=== PATIENT | male | born 1950 | race Caucasian/White ===

== ENCOUNTER 2023-10-06 15:11 | Outpatient (RCR) | payer MEDICARE, OTHER, SELFPAY | END 2023-10-06 23:59 | disposition home or self-care (01) | LOC: CRHB 15:11 | PROVIDERS: ATTENDING PHYSICIAN Internal Medicine | DX: I50.22 Chronic systolic (congestive) heart failure (principal); E85.4 Organ-limited amyloidosis; I43 Cardiomyopathy in diseases classified elsewhere | CPT/HCPCS: G0422; G0423 ==

== ENCOUNTER 2023-11-03 15:25 | Outpatient (RCR) | payer MEDICARE, OTHER, SELFPAY | END 2023-11-03 23:59 | disposition home or self-care (01) | LOC: CRHB 15:25 | PROVIDERS: ATTENDING PHYSICIAN Internal Medicine | DX: I50.22 Chronic systolic (congestive) heart failure (principal) | CPT/HCPCS: G0422; G0423 ==

== ENCOUNTER 2023-12-03 14:52 | Outpatient (RCR) | payer MEDICARE, OTHER, SELFPAY | END 2023-12-03 23:59 | disposition home or self-care (01) | LOC: CRHB 14:52 | PROVIDERS: ATTENDING PHYSICIAN Internal Medicine | DX: I50.22 Chronic systolic (congestive) heart failure (principal); I50.20 Unspecified systolic (congestive) heart failure (principal) | CPT/HCPCS: G0422; G0423 ==

== ENCOUNTER 2023-12-15 15:30 | Outpatient (RCR) | payer MEDICARE, OTHER, SELFPAY ==
[2023-12-14 09:01] LABS: HDL Cholesterol 47 mg/dl; LDL Cholesterol, Calculated 87 mg/dl; Total Cholesterol 155 mg/dl (50-199); Triglyceride 106 mg/dl (10-149); Very Low Density Lipoprotein 21 mg/dl (0-30)
== END 2023-12-15 23:59 | disposition home or self-care (01) ==
LOC: CRHB 15:30
PROVIDERS: ATTENDING PHYSICIAN Internal Medicine; FAMILY PHYSICIAN Physician Assistant
DX: I50.22 Chronic systolic (congestive) heart failure (principal); I42.8 Other cardiomyopathies; I48.19 Other persistent atrial fibrillation; Z95.810 Presence of automatic (implantable) cardiac defibrillator
CPT/HCPCS: 36415; 80061; G0422; G0423

== ENCOUNTER → 2024-11-14 10:52 | Outpatient (REF) | payer MEDICARE, OTHER, SELFPAY | LOC: RAD 10:52 | PROVIDERS: ATTENDING PHYSICIAN Physician Assistant | DX: R13.19 Other dysphagia (principal); R63.4 Abnormal weight loss | CPT/HCPCS: 74246 ==

== ENCOUNTER → 2024-11-20 09:51 | Outpatient (REF) | payer MEDICARE, OTHER, SELFPAY | LOC: RST 09:51 | PROVIDERS: ATTENDING PHYSICIAN Physician Assistant | DX: R13.19 Other dysphagia (principal) | CPT/HCPCS: 74230; 92611 ==

== ENCOUNTER → 2024-12-13 13:21 | Outpatient (REF) | payer MEDICARE, OTHER, SELFPAY | LOC: RAD 13:21 | PROVIDERS: ATTENDING PHYSICIAN Internal Medicine; FAMILY PHYSICIAN Physician Assistant; OTHER PHYSICIAN Internal Medicine Cardiovascular Disease; OTHER PHYSICIAN Internal Medicine Hematology & Oncology | DX: E85.82 Wild-type transthyretin-related (ATTR) amyloidosis (principal); R13.19 Other dysphagia; R63.4 Abnormal weight loss; D64.9 Anemia, unspecified; N18.4 Chronic kidney disease, stage 4 (severe) | CPT/HCPCS: 36415; 71270; 74178; Q9967 ==

== ENCOUNTER 2025-03-05 15:18 | Outpatient (RCR) | payer MEDICARE, OTHER, SELFPAY | END 2025-03-05 23:59 | disposition home or self-care (01) | LOC: RPT 15:18 | PROVIDERS: ATTENDING PHYSICIAN Psychiatry & Neurology Neurology; FAMILY PHYSICIAN Physician Assistant | DX: G20.A1 Parkinson's disease without dyskinesia, without mention of fluctuations (principal); Z73.6 Limitation of activities due to disability | CPT/HCPCS: 97110; 97112; 97163; 97164; 97530 ==

== ENCOUNTER 2025-03-14 15:20 | Outpatient (RCR) | payer MEDICARE, OTHER, SELFPAY | END 2025-03-14 23:59 | disposition home or self-care (01) | LOC: ROT 15:20 | PROVIDERS: ATTENDING PHYSICIAN Psychiatry & Neurology Neurology; FAMILY PHYSICIAN Physician Assistant | DX: G20.A1 Parkinson's disease without dyskinesia, without mention of fluctuations (principal); Z73.6 Limitation of activities due to disability | CPT/HCPCS: 97110; 97112; 97530 ==

== ENCOUNTER 2025-03-15 15:12 | Emergency (ER) | payer MEDICARE, OTHER, SELFPAY ==
[2025-03-15] VITALS (8 sets, daily range): BP systolic 95–115; BP diastolic 59–75; BMI 24.0
--- NOTE | 2025-03-15 16:52 | ED.GENMED ---
History of Present Illness
General
Chief Complaint: Weakness
Time Seen by Provider: 03/15/25 16:19
History of Present Illness
History of Present Illness:
74-year-old male with history of A-fib, amyloidosis, and Parkinson's-like syndrome presents to the emergency department for evaluation of increasing functional decline and altered mental status in the past 5 days. She notes a left facial droop and
occasional difficulty with speech. Increased shuffling gait and instability. Last saw his neurologist last week. No fevers or chills
Past History
Past History
ED Past Medical History: Arrthythmia (Atrial fibrillation), CHF, HTN and Other (Amyloidosis cardiomyopathy)
ED Past Surgical History: Cardiac
Social History
Tobacco: Non-smoker
Alcohol: None
Review of Systems
Review of Systems
Allergies reviewed?: Yes
All Other Systems: ROS reviewed and negative except as documented in HPI and ROS
Phy Exam
Physical Exam
Physical Exam:
GEN: Well appearing, NAD, WDWN
HEENT: Oral mucosa moist, no scleral icterus
Cardiac: Regular rate and rhythm, no murmurs
Lung: No respiratory distress, no tachypnea, lungs clear to auscultation bilaterally
MSK: No gross deformity or injuries
Skin: Good color, no pallor or jaundice, no rashes
Neuro: AO x3, moves all extremities freely. Mild facial droop at the left nasolabial fold appreciated, otherwise cranial nerves II through XII grossly intact. Bilateral upper and lower extremity strength is intact in all flores and symmetric
Psych: Calm, cooperative
Course
Orders/Labs/Results
Orders:
Orders
03/15/25 16:51
CT Head W/o Iv Contrast Urgent
Comment:
Reason For Exam: AMS, L facial droop
03/15/25 16:54
Electrocardiogram (*1) Urgent
Reason for Study: TIA/Stroke
EKG- Treatment ONCE
03/15/25 17:20
Basic Metabolic Panel Urgent
Complete Blood Count/With Diff Urgent
03/15/25 17:27
Urinalysis Reflex To Culture Urgent
Date Specimen was Collected: 03/15/25
Time Specimen was Collected: 17:26
03/15/25 19:30
Dexamethasone Sod Phosphate [Decadron] 10 mg IV NOW STA
Abnormal Lab Results
03/15/25 03/15/25
17:20 17:27
RBC 3.30 L 10^6/uL
(4.70-6.10)
Hgb 10.2 L g/dL
(13.0-18.0)
Hct 29.2 L %
(39.0-52.0)
Plt Count 119 L 10^3/uL
(130-400)
Absolute Lymphs (auto) 1.1 L 10^3/uL
(1.2-3.4)
Lymphocytes % 19.4 L %
(20.5-51.1)
BUN 39 H mg/dl
(9-20)
Creatinine 1.6 H mg/dL
(0.7-1.3)
Glucose 102 H mg/dl
(70-99)
Urine Glucose 4+ A
(Negative)
03/15/25 17:20
03/15/25 17:20
Vital Signs
Initial and Last Documented VS:
Initial Vital Signs
Temp Pulse Resp BP Pulse Ox
97.6 F 85 16 95/59 99
03/15/25 15:16 03/15/25 15:16 03/15/25 15:16 03/15/25 15:16 03/15/25 15:16
Last Documented Vital Signs
Temp Pulse Resp BP Pulse Ox
97.6 F 85 11 102/69 98
03/15/25 15:16 03/15/25 22:00 03/15/25 22:00 03/15/25 22:00 03/15/25 21:30
MDM/Problems Addressed
MDM/Problems Addressed:
Unfortunately imaging reveals a large 5+ centimeter mass in the right hemisphere of the brain with significant mass effect. Strangely he had a normal CT scan at [facility] 1 month ago which does question whether this could be a hematoma as
the patient is anticoagulated however given lack of trauma and this is most likely MS. Transferred to the surgical service at [facility] remained stable with no change in neurologic status
*Pulse Oximetry
SaO2: 100
Oxygen Mode of Delivery: Room air
Patient hypoxic: no
*Critical Care Note
Total Time (30-74mins, 75-104mins- exclusive of procedures): 35 minutes
comment:
Critical care time: 35 minutes
Critical care time was exclusive of: Separately billable procedures, treating other patients, and teaching time
Critical care was necessary to treat or prevent imminent or life-threatening deterioration of the following conditions: Brain mass with significant mass effect
Critical care time spent personally by me on the following activities:
[x] Review of old charts
[x] Obtaining history from patient or surrogate
[x] Ordering and review of the laboratory studies
[x] Ordering and review of radiographic studies
[x] Ordering and performing treatments and interventions
[x] Patient patient's response to treatment
[x] Development of treatment plan with patient or surrogate
ED Attending Note
-
Portions of this chart may have been created with voice recognition software.� Occasional wrong word or��sound alike� substitutions may have occurred due to the inherent limitations of voice recognition software.
Discharge Plan
Departure
Patient Disposition: Acute Care Hospital
Date of Disposition: 03/15/25
Time of Disposition: 19:24
Discharge Problem:
Brain mass
Prescriptions:
No Action
Amyloidosis Clinical Trial
1 dose SC [id number]
atorvastatin 40 mg tablet
40 mg PO HS
Vyndamax 61 mg capsule
61 mg PO DAILY
Eliquis 5 mg Tablet
5 mg PO BID Qty: 60 0RF
Rx Instructions:
New medication which is a blood thinner
sennosides-docusate sodium [Senna Plus] 8.6-50 mg Tablet
1 tab PO BID Qty: 30 0RF
polyethylene glycol 3350 17 gram Powder In Packet
17 g PO DAILY PRN (Reason: constipation) Qty: 30 0RF
midodrine 10 mg tablet
10 mg PO TID 30 Days Qty: 90 0RF
torsemide 20 mg tablet
40 mg PO DAILYPRN PRN (Reason: wt gain) Qty: 0 0RF
Rx Instructions:
for weight gain 3 lbs overnight or 5lbs in 1 wk
amiodarone [Pacerone] 200 mg Tablet
200 mg PO BID 30 Days Qty: 60 0RF
multivitamin Tablet
1 tab PO DAILY
potassium chloride [Klor-Con M20] 20 mEq tablet,ER particles/crystals
20 meq PO QPM
Rx Instructions:
New medication
Referrals:
Sophie Lynn PA [Family Provider, Family Practice]
Hospital Transfer
Other hospital: [facility]
I certify that the patient requires transfer: Yes
Discussed case with accepting physician: Michela
Reason for transfer: higher level of care
Interventions
Interventions:
*Risk Screen - Suicide Last Done: 03/15/25 15:16
*General Assessment Last Done: 03/15/25 15:16
*ED- Fall Risk Assessment Last Done: 03/15/25 16:37
*ED COVID-19 Vaccine History Last Done: 03/15/25 15:16
*Nursing Disposition Last Done: 03/15/25 22:52
ED- Pulmonary Assessment Last Done: 03/15/25 19:55
ED- Neurological Assessment Last Done: 03/15/25 19:55
ED- Cardiac Assessment Last Done: 03/15/25 19:55
Discharge Date and Time
Discharge Date/Time: 03/15/25 22:53
Print Language: BELGIAN
[2025-03-15 17:29] LABS: Hematocrit 29.2 % (39.0-52.0); Hemoglobin 10.2 g/dL (13.0-18.0); Mean Corp Hgb Conc. 34.9 g/dL (33.0-37.0); Mean Corpuscular Volume 88.5 fL (80.0-94.0); Nucleated Red Blood Cells % 0 % (-); Platelet Count 119 10^3/uL (130-400); Red Cell Dist. Width 13.2 % (11.5-14.5)
[2025-03-15 17:42] LABS: Urine Character Clear (Clear)
[2025-03-15 17:45] LABS: Blood Urea Nitrogen 39 mg/dl (9-20); Calcium 8.8 mg/dl (8.4-10.2); Carbon Dioxide 26 mmol/L (22-30); Chloride 103 mmol/L (98-107); Estimated Creatinine Clearance 44 ml/min; Glucose 102 mg/dl (70-99); Sodium 137 mmol/L (135-145); eGFR 45.21
[2025-03-15] MEDS: DECADRON 10 MG IV (19:33)
== END 2025-03-15 22:53 | disposition short-term general hospital (02) ==
LOC: EMR 15:12
PROVIDERS: Physician Assistant; EMERGENCY PHYSICIAN Emergency Medicine; FAMILY PHYSICIAN Physician Assistant
DX: G93.9 Disorder of brain, unspecified (principal); I48.91 Unspecified atrial fibrillation; G20.A1 Parkinson's disease without dyskinesia, without mention of fluctuations; I11.0 Hypertensive heart disease with heart failure; I50.9 Heart failure, unspecified; I42.9 Cardiomyopathy, unspecified
CPT/HCPCS: 99291; 96374; 70450; 80048; 81003; 85025; 93005

== ENCOUNTER → 2025-04-23 12:19 | Outpatient (REF) | payer MEDICARE, OTHER, SELFPAY ==
[2025-04-23 12:53] LABS: Hematocrit 28.3 % (39.0-52.0); Hemoglobin 9.3 g/dL (13.0-18.0); Mean Corp Hgb Conc. 32.9 g/dL (33.0-37.0); Mean Corpuscular Volume 93.4 fL (80.0-94.0); Nucleated Red Blood Cells % 0 % (-); Platelet Count 189 10^3/uL (130-400); Red Cell Dist. Width 16.0 % (11.5-14.5)
[2025-04-23 13:16] LABS: ALT (SGPT) 17 U/L (0-50); AST (SGOT) 104 U/L (17-59); Albumin 4.3 g/dl (3.5-5.0); Alkaline Phosphatase 126 U/L (38-126); Blood Urea Nitrogen 37 mg/dl (9-20); Calcium 9.5 mg/dl (8.4-10.2); Carbon Dioxide 26 mmol/L (22-30); Chloride 100 mmol/L (98-107); Glucose 162 mg/dl (70-99); Potassium 4.0 mmol/L (3.5-5.1); Sodium 136 mmol/L (135-145); Total Protein 7.3 g/dl (6.3-8.2); eGFR > 60.00
== END ==
LOC: CLAB 12:19
PROVIDERS: ATTENDING PHYSICIAN Physician Assistant
DX: N18.4 Chronic kidney disease, stage 4 (severe) (principal); D64.9 Anemia, unspecified
CPT/HCPCS: 36415; 80053; 85025

== ENCOUNTER 2025-05-15 12:32 | Observation (INO) | payer MEDICARE, OTHER, SELFPAY ==
[2025-05-15] VITALS (9 sets, daily range): BP systolic 99–122; BP diastolic 61–73; BMI 21.0
[2025-05-15] MEDS: KEPPRA 1500 MG IV (06:14)
[2025-05-15 06:23] LABS: Hematocrit 34.6 % (39.0-52.0); Hemoglobin 11.7 g/dL (13.0-18.0); Mean Corp Hgb Conc. 33.8 g/dL (33.0-37.0); Mean Corpuscular Volume 91.3 fL (80.0-94.0); Nucleated Red Blood Cells % 0 % (-); Platelet Count 120 10^3/uL (130-400); Red Cell Dist. Width 15.1 % (11.5-14.5)
--- NOTE | 2025-05-15 06:23 | ED.GENMED ---
History of Present Illness
General
Chief Complaint: Seizure
Source: patient, spouse, family and ambulance crew
Exam Limitations: none
Time Seen by Provider: 05/15/25 06:05
Nursing documentation reviewed up to this point in time: agreed with
History of Present Illness
History of Present Illness:
Note:
CHIEF COMPLAINT(S)
Seizures
HISTORY OF PRESENT ILLNESS
The patient is a 74-year-old male with a recent history of seizures. The seizures began this morning, with at least three episodes noted by the family. The first significant episode was reported around 5:00 or 5:30 AM. During the seizures, the
patient exhibited stiffening in the legs and some rolling of the eyes. Prior to today, there was mention of a possible seizure occurring earlier which the family did not fully witness, as well as a tremor noted in the hands earlier in the night that
had resolved. The patients daughter is concerned and mentioned that the patient had undergone radiation treatment in the past. There is uncertainty about whether the seizures are breakthrough seizures, possibly associated with inflammation due to
prior radiation treatment.
ADDITIONAL HISTORY OBTAINED FROM SOURCES OTHER THAN THE PATIENT
Information was provided by the patients daughter. She reported details regarding the seizures, including timing, symptoms, and the patients history of radiation treatment. There was also mention of a neurologist, Qian Aguilera, being involved in
the patients care.
CHRONIC MEDICAL CONDITIONS SIGNIFICANTLY AFFECTING CARE
The patient has undergone radiation treatment in the past.
PHYSICAL EXAM
General: drowsy, postictal
Skin: Warm, dry.
Head: Normocephalic, atraumatic.
Neck: Supple, trachea midline.
Eye, Ears, Nose, Mouth, and Throat: Oral mucosa moist.
Cardiovascular: Normal peripheral perfusion, No edema. pacemaker
Respiratory: Respirations are non-labored.
Gastrointestinal: Abdomen nondistended.
Back: Normal range of motion, Normal alignment.
Musculoskeletal: Normal range of motion, normal strength.
Neurological: Alert and oriented to person, place, time, and situation, No focal neurological deficit observed.
Psychiatric: Cooperative, appropriate mood & affect.
PROBLEM LIST
Acute Problems:
- Seizures
Chronic Problems:
- History of radiation treatment
DIFFERENTIAL DIAGNOSIS
The Differential Diagnosis includes, in no particular order and is not limited to:
1. Epilepsy
2. Post-radiation effects
3. Medication non-compliance
4. Brain tumor recurrence
5. Metabolic disturbances
6. Infections (e.g., meningitis, encephalitis)
7. Cerebrovascular event
8. Electrolyte imbalances
9. Sleep disturbances
10. Anxiety or stress-related episodes
CARE-UPDATE
05/15/25 - 06:57
No Content
CARE-UPDATE
05/15/25 - 10:53
Patient shows no signs of subdural hematoma and has returned to baseline with no neurologic deficits observed. Coordination with Dr. Banuelos from [facility] confirms recommendation for admission to [place]. Plan includes loading
with VIMPAT and seeking a consultation with radiation oncology.
EKG
My independent EKG interpretation is:
- Rhythm: Sinus rhythm
- Heart Rate: 84 bpm
- [place]: Left axis deviation
Disposition:
SUMMARY OF ENCOUNTER
The patient, a 74-year-old male, was evaluated in the emergency department following episodes of seizures, as reported by family. Upon further imaging, a CT scan revealed findings consistent with post-operative changes, possibly related to previous
treatment for a glioblastoma. His condition prompted admission to Intermediate Medical Unit (IMU) for closer observation and management.
DISPOSITION
Admit to Intermediate Medical Unit (IMU).
MANAGEMENT OF THE PATIENTS CARE WAS DISCUSSED WITH
Consultation and coordination with the hospital team for admission.
MEDICATION RECONCILIATION
- IV Lacosamide (Vimpat) administered during emergency care.
MEDICAL DECISION MAKING
-Number and Complexity of Problems Addressed:
Chronic conditions affecting care include a history of radiation treatment.
Differential Diagnosis includes:
1. Epilepsy
2. Post-radiation effects
3. Medication non-compliance
4. Brain tumor recurrence
5. Metabolic disturbances
6. Infections (e.g., meningitis, encephalitis)
7. Cerebrovascular event
8. Electrolyte imbalances
9. Sleep disturbances
10. Anxiety or stress-related episodes
-Data:
Category 1
External record reviewed: CT head findings discussed, consistent with post-operative changes.
Category 2
Clinical information was obtained from an independent historian, provided by the patients daughter.
Category 3
Discussion of management with the hospital team for appropriate care and admission.
-Risk:
Prescription medication was administered with IV Lacosamide (Vimpat) in emergent care.
DIAGNOSIS
- Seizures (ICD-10: R56.9)
- Glioblastoma (ICD-10: C71.9)
Past History
Past History
ED Past Medical History: Arrthythmia (Atrial fibrillation), CHF, HTN and Other (Amyloidosis cardiomyopathy)
ED Past Surgical History: Cardiac
Social History
Tobacco: Non-smoker
Alcohol: None
Phy Exam
Physical Exam
Physical Exam:
.
Jocelin Coma Scale
Eye Opening: To Voice
Verbal Response: Confused
Motor Response: Obeys Commands
GCS Total Score: 13
Course
Orders/Labs/Results
Orders:
Orders
05/15/25 05:54
CT Head W/o Iv Contrast Urgent
Comment:
Reason For Exam: multple seizures tonight. hx brain mass
05/15/25 05:56
Complete Blood Count/With Diff Urgent
Comprehensive Metabolic Panel Urgent
Keppra (Levetiracetam) [S] Urgent
05/15/25 06:04
Levetiracetam Injectable [Keppra] 1,500 mg IV NOW STA
05/15/25 07:27
CR Chest Portable - 1 View Urgent
Comment:
Reason For Exam: seizure
Reason Study Needs to be Portable: Unable to Transport
05/15/25 07:46
Electrocardiogram (*1) Stat
Reason for Study: QTc Monitoring
Electrocardiogram (*1) Urgent
EKG- Treatment ONCE
05/15/25 08:17
Lacosamide [Vimpat] 200 mg IV NOW STA
05/15/25 09:58
Admit/Transfer Patient As Directed
Co-Sign Provider:
Level of Care: Inpatient admission
Assign to:: Medical/Surgical
Physician / Group: hospitalist
Diagnosis: Seizure
Reason for Hospitalization: Seizure
Expected length of stay greater than two midnights?: Yes
ELOS- Estimated Length of Stay in days: 3
I certify the patient meets the requirements for IP care: Yes
PRN Pain Medication Management As Directed
May give lesser potent ordered pain med per pt: Yes
preference::
Protocol:: Medication orders for pain may be administered in a
manner that supports deferring to patient preference
when the pt is:
- Requesting an ordered lesser potent pain medication.
Least to most potent pain medications are defined
as: acetaminophen < NSAID < tramadol < opioids
(morphine, oxycodone, hydromorphone).
- Requesting a lesser dose of the same medication IF
ORDERED.
- Requesting a less intrusive route of administration
if both routes are prescribed by the provider (PO <
IV).
05/15/25 09:59
Code Status As Directed
Resuscitation Status: Do not resuscitate
Reached after discussion with pt or family/Healthcare POA: Yes
DNR Bracelet Application ONCE
05/15/25 10:11
NEUROLOGY CONSULT Routine
Consulting Provider: Yoav Michaud
Was physician already notified: Yes
05/15/25 10:29
EEG Routine Routine
Reason for Exam: seizure
Abnormal Lab Results
05/15/25
05:56
RBC 3.79 L 10^6/uL
(4.70-6.10)
Hgb 11.7 L g/dL
(13.0-18.0)
Hct 34.6 L %
(39.0-52.0)
RDW 15.1 H %
(11.5-14.5)
Plt Count 120 L 10^3/uL
(130-400)
Abs Immat Gran (auto) 0.1 H 10^3/uL
(0-0.05)
Absolute Neuts (auto) 8.2 H 10^3/uL
(1.4-6.5)
Absolute Lymphs (auto) 0.8 L 10^3/uL
(1.2-3.4)
Immature Gran % 0.8 H %
(0-0.5)
Neutrophils % 85.5 H %
(42.2-75.2)
Lymphocytes % 8.7 L %
(20.5-51.1)
Carbon Dioxide 19 L mmol/L
(22-30)
BUN 45 H mg/dl
(9-20)
Glucose 127 H mg/dl
(70-99)
Alkaline Phosphatase 30 L U/L
(38-126)
05/15/25 05:56
05/15/25 05:56
Vital Signs
Initial and Last Documented VS:
Initial Vital Signs
Pulse Resp Pulse Ox
96 18 96
05/15/25 05:39 05/15/25 05:39 05/15/25 05:39
Last Documented Vital Signs
Pulse Resp BP Pulse Ox
85 11 111/68 100
05/15/25 09:00 05/15/25 09:00 05/15/25 09:00 05/15/25 09:00
*Pulse Oximetry
SaO2: 96
Oxygen Mode of Delivery: Room air
Patient hypoxic: no
*Critical Care Note
Total Time (30-74mins, 75-104mins- exclusive of procedures): 36
comment:
Critical care statement: A total of 36 minutes of critical care time was provided for this patient. This includes management of unstable vital signs, evaluation of the patient at bedside, reviewing the patient's pertinent medical records, discussion
with consultants, review of old EKGs and review of pertinent medical records. This time with separate from time utilized to perform the aforementioned documented procedures
ED Attending Note
-
Portions of this chart may have been created with voice recognition software.� Occasional wrong word or��sound alike� substitutions may have occurred due to the inherent limitations of voice recognition software.
Discharge Plan
Departure
Patient Disposition: Admit
Date of Disposition: 05/15/25
Time of Disposition: 08:03
Admit to: IMU
Presentation/result/management discussed w/ accepting MD/DO: Hospitalist
Patient with high blood pressure during this ER visit?: Yes
Condition: Good
Discharge Problem:
Seizure, Glioblastoma
Prescriptions:
No Action
Amyloidosis Clinical Trial
1 dose SC [id number]
Rx Instructions:
vutrisiran
atorvastatin 40 mg tablet
40 mg feeding tube HS
Vyndamax 61 mg capsule
61 mg PO .ON HOLD
Rx Instructions:
daily but has been on hold since january 2025
levothyroxine 25 mcg tablet
25 mcg feeding tube Q48H
levothyroxine 25 mcg tablet
50 mcg feeding tube Q48H
dexamethasone 0.5 mg/5 mL elixir
4 mg feeding tube DAILY
famotidine 40 mg/5 mL (8 mg/mL) suspension for reconstitution
20 mg feeding tube BID
carbidopa-levodopa 25-100 mg tablet
1 tab feeding tube 0800,1200,1600,2000
levetiracetam 100 mg/mL solution
1,500 mg feeding tube BID
acetaminophen 650 mg/20.3 mL Solution
650 mg feeding tube QIDPRN PRN (Reason: mild pain/fever)
dapagliflozin propanediol [Farxiga] 10 mg tablet
10 mg PO DAILY
torsemide 20 mg tablet
10 mg feeding tube DAILYPRN PRN (Reason: wt gain)
polyethylene glycol 3350 17 gram powder in packet
17 g feeding tube DAILYPRN PRN (Reason: constipation)
Eliquis 5 mg tablet
5 mg feeding tube BID
Referrals:
Sophie Lynn PA [Family Provider, Family Practice]
Interventions
Interventions:
*Risk Screen - Suicide Last Done: 05/15/25 05:39
*General Assessment Last Done: 05/15/25 06:25
*Neglect/Abuse Screening Last Done: 05/15/25 05:39
ED- Cardiac Assessment Last Done: 05/15/25 08:10
ED- Neurological Assessment Last Done: 05/15/25 08:10
ED- Pulmonary Assessment Last Done: 05/15/25 08:10
Discharge Date and Time
Print Language: PERSIAN
[2025-05-15 06:41] LABS: AST (SGOT) 57 U/L (17-59); Albumin 4.5 g/dl (3.5-5.0); Alkaline Phosphatase 30 U/L (38-126); Blood Urea Nitrogen 45 mg/dl (9-20); Calcium 9.2 mg/dl (8.4-10.2); Carbon Dioxide 19 mmol/L (22-30); Chloride 100 mmol/L (98-107); Glucose 127 mg/dl (70-99); Potassium 3.6 mmol/L (3.5-5.1); Sodium 137 mmol/L (135-145); Total Protein 6.9 g/dl (6.3-8.2); eGFR > 60.00
[2025-05-15 06:50] LABS: ALT (SGPT) 27 U/L (0-50)
[2025-05-15] MEDS: VIMPAT 200 MG IV ×2 (08:49→20:05)
--- NOTE | 2025-05-15 09:35 | HPS.HSE ---
Family Physician
-
Family Physician: SHANTE Burnham
Chief Complaint
-
Seizures
History of Present Illness
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 Per who is at
bedside, she noticed he was having a seizure around 5am this morning, resolving spontaneously after about a minute. Shortly after, another seizure of similar duration happened before EMS got to the home. He had another similar seizure with EMS, who
then administered 4mg Versed en route. reports that he did not recover between seizures. He had brain malignancy resection in 03/2025 and is currently on radiation. He had radiated yesterday and is set to start chemo shortly. He has had brain
malignancy seizures in the past with his first seizure noted in January 2025.
No fever/chills.
He has a history of dysphagia and aspiration pneumonia and receives most of his nutrition and oral medications via PEG tube. He receives speech therapy at home, and has been advanced to allow apple sauce orally (he takes his Vutrisiran crushed in
apple sauce) but he would prefer to have oral meals if able, and requests speech/swallow eval to that effect.
Pt was sleepy during exam and most of history was provided by his . She states that he is currently back to his baseline mental status albeit being sleepy.
Medical History
Past Medical History
Past Medical History: Reports Arrhythmia (persistent Afib), Cancer (GBM), CHF (Plus AICD), HTN, Hypercholesterolemia and Other (CKD4, )
Additional Past Medical History:
Parkinson's disease, LVH, hemochromatosis gene carrier
Past Surgical History: Reports Brain (Tumor removal 03/30) and Cardiac (Cardioversion, ablation)
Social History
Tobacco: Former Smoker (Remote)
Alcohol: None
Drug: None
Personal:
Living: With Family
Family History
Family History: Not pertinent
Allergies / Home Medications
Allergies reflects when Allergies were last updated in [facility].
Home Medications with original date entered in [facility]
Allergy/Medication List:
Allergies
Allergy/AdvReac Type Severity Reaction Status Date / Time
cat dander Allergy Unknown Verified 03/15/25 15:23
Home Medications
Amyloidosis Clinical Trial 1 dose SC [id number] TRIAL 10/06/22
atorvastatin 40 mg tablet 40 mg PO HS High cholesterol 10/06/22
tafamidis 61 mg capsule (Vyndamax) 61 mg PO DAILY Amyloid cardiomyopathy 10/06/22
apixaban 5 mg tablet (Eliquis) 5 mg PO BID #60 tabs 10/15/22
polyethylene glycol 3350 17 gram oral powder packet 17 g PO DAILY PRN constipation #30 ea 10/15/22
sennosides 8.6 mg-docusate sodium 50 mg tablet (Senna Plus) 1 tab PO BID #30 tabs 10/15/22
amiodarone 200 mg tablet (Pacerone) 200 mg PO BID 30 days #60 tabs 10/29/22
midodrine 10 mg tablet 10 mg PO TID 30 days #90 tabs 10/29/22
torsemide 20 mg tablet 40 mg (2 x 20 mg) PO DAILYPRN PRN wt gain #0 tabs 10/29/22
multivitamin 1 tab PO DAILY 12/17/22
potassium chloride 20 mEq tablet,extended release(part/cryst) (Klor-Con M) 20 meq PO QPM 12/17/22
Review of Systems
-
History Source: Patient and Family
Constitutional: Reports Fatigue; Denies Fever
Cardiac: Denies Chest Pain
Abdomen/GI: Denies Nausea or Vomiting
Neurological: Reports Other (generalized fatigue, no new focal weakness)
Physical Exam
Vital Signs
Vital Signs
Pulse Resp BP Pulse Ox
85 11 111/68 100
05/15/25 09:00 05/15/25 09:00 05/15/25 09:00 05/15/25 09:00
Physical Exam
General: Other (sleepy. Appears tired)
HEENT: NormoCephalic, Anicteric and Moist mucous membranes
Respiratory: Clear (anterior auscultation) and Non Labored Respirations; No Wheezes, Rales, Rhonchi or Crackles
Cardiac: S1/S2 and Regular Rhythm; No Murmur, Rub, Gallop, Peripheral Edema or Calf Tenderness
GI: Soft, Non Tender, Non Distended and Normal Bowel Sounds
Musculoskeletal: No Clubbing, No Cyanosis and No Edema
Skin: Warm and Dry
Neuro: Awake, Alert, Oriented (mild lower facial droop (baseline), otherwise, CN II to 12 intact. ) and Other (pt appears tired, but otherwise limb motor strength intact); No Slurred Speech
Psych: Calm
Laboratory Results
-
05/15/25 05:56
05/15/25 05:56
Laboratory Results
Total Bilirubin 1.2 mg/dl (0.2-1.3) 05/15/25 05:56
AST 57 U/L (17-59) 05/15/25 05:56
ALT 27 U/L (0-50) 05/15/25 05:56
Alkaline Phosphatase 30 U/L (38-126) L 05/15/25 05:56
Impression/Plan
-
IMPRESSION:
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
time without complete recovery inbetween.
PLAN:
Status epilepticus:
- Secondary to brain malignancy (GBM). Status post tumor resection in 03/2025. Status post radiation yesterday. No seizure recurrence since received 4mg Versed by EMS
- Increase home decadron from 4mg daily to BID. Continue famotidine
- Lacosamide 200mg given in the ED
- Continue Keppra 1500 BID
- Neuro consult
- Seizure precautions
- Check CPK
- Reach out to [facility] Dr. Sakina Saunders
dysphagia:
History of aspiration pneumonia:
- Feeds per PEG tube -Nepro
- Speech eval
- Dietary consult
Persistent A-fib:
Status post ablation
- Currently in sinus rhythm
- Continue Eliquis
CKD 4:
- Avoid nephrotoxic agents
- Nepro tube feeds
Essential hypertension:
-Blood pressure appears stable.
- Continue torsemide PRN for weight gain
Amyloidosis:
Amyloid cardiomyopathy:
- Continue Vutrisiran
Hypothyroidism:
- Continue levothyroxine
Hyperlipidemia:
- Continue atorvastatin 40
HFrEF:
Mixed systolic and diastolic dysfunction
-Most recent echo in 2022 with EF 20 to 25%
-has AICD
- Continue torsemide as needed, Farxiga
Parkinson's disease:
- Continue Sinemet
Hemochromatosis gene carrier
Glioblastoma multiforme
DVT prophylaxis: Eliquis
CODE STATUS: DNR
--- NOTE | 2025-05-15 10:25 | CON.NEURO ---
Addendum entered and electronically signed by Yoav Michaud MD 05/15/25 14:56:
Studies reviewed.
I have personally examined the patient. I reviewed and agree with the EDUCATIONAL GUIDANCE COUNSELOR's Note.
My addenda:
Awake, alert, interactive. No acute distress.
Speech intact, with reduced output. Masked facies
Follows 2-step requests w/ mild difficulty. No tremor.
Extra-ocular movements grossly intact.
Facial movements full and symmetric. Hearing intact to normal conversational volume.
Normal UE movements bilaterally.
Neck: full ROM.
Chest: no dyspnea
Heart: no JVD
Ext: (-) Clubbing, (-) Cyanosis, (-) Edema
IMPRESSIONS/RECOMMENDATIONS:
Abrupt onset of worsening seizure control in a patient with known glioblastoma and prior right sided craniotomy. Patient also has a prior diagnosis of parkinsonism as well as amyloidosis.
Agree with continuation of levetiracetam 1500 mg twice a day
Agree with addition of lacosamide 200 mg twice a day
Recommend the patient as an outpatient received a prescription for midazolam nasal spray to prevent recurrent seizures as an individual treatment
Agree with provision of increased dosing of dexamethasone from 4 mg daily to dosed as twice a day
Patient unlikely to benefit from repeated MRI of the brain as he has just undergone said testing
Continue patient's usual apixaban
Continue usual Parkinson's medications, including carbidopa/levodopa
Continue usual medications for amyloid cardiomyopathy
D/W patient / family
All questions answered.
Patient should follow with his usual outpatient neurologist.
Original Note:
Neuro Assessment/Plan
Assessment
Patient is a 74 year old male with past medical history of A-fib on Eliquis, CVA, amyloidosis, Parkinson's-like syndrome, GBM s/p resection 03/2025 presents to [facility] on 05/15/2025 for evaluation of seizure activity.
Plan
Impression: breakthrough seizure in a patient with history of GBM s/p resection in March 2025
-agree with starting lacosamide 200 mg BID
-continue levetiracetam 1500 mg BID
-recommend nayzalim nasal spray as needed for seizure activity
-seizure precautions
-obtain EEG
-increase dexamethasone from 4 mg daily to BID
-follow up outpatient with usual neurologist Dr. Vincent at [facility]
-patient just had brain MRI 3 weeks ago no need for repeat unless recurrent seizures or neurologic decline
-continue apixaban and atorvastatin for secondary stroke prevention
-continue Parkinson medications
All questions encouraged and answered, plan of care discussed with Dr. Michaud, patient and
Consultation
Order
Date of Consultation: 05/15/25
Requesting Provider:
Reason for Consult:
Subjective/Objective
Subjective Data
Date of Service: May 15, 2025
Patient is a 74 year old male with past medical history of A-fib on Eliquis, CVA, amyloidosis, Parkinson's-like syndrome, GBM s/p resection 03/2025 presents to [facility] on 05/15/2025 for evaluation of seizure activity. Last seizure was in January when he
was diagnosed with GBM, had not had any seizures since surgery for tumor removal in March until this morning. Today had 3 witness seizures. Head turned to left, eyes rolled back with whole body shaking. Seizures brief and lasting less than 2 minutes.
Denies tongue or cheek laceration. He got 4mg Versed on route by EMS. He received radiation yesterday and is to start chemo soon. He is currently getting dexamethasone 4 mg daily. His neurologist at [facility] recommended adding Vimpat and he received
200mg in the ED. Also on Keppra 1500 BID at home. Has been seeing speech therapy and has difficulty swallowing. Has feeding tube. He had a brain MRI at [facility] on 05/01/2025 which showed post surgical changes and no evidence of tumor progression. In the
ED patient currently back to baseline. Vital signs stable.
Was seen by his neurologist in April. Adapted from outpatient neurology note on 04/30/2025: 'The patient is a 74-year-old male with PMH of cardiac amyloidosis associated with cardiomyopathy, atrial fibrillation and Parkinson's disease who presents
today with is via telemedicine for follow up. He was last seen by Dr. Vincent on 03/08/2025. He was admitted to [facility] on 01/11/2025 with acute onset of left face and left arm numbness. Initial head CT showed a chronic appearing
infarct in the left frontal lobe. There was no evidence of acute infarction. CTA head and neck did not show hemodynamically significant stenosis. In the ED after returning from CT scan he had what seemed to be a generalized tonic-clonic seizure
which started with rhythmic left arm shaking and resolved with Ativan and a Keppra load. EEG on 01/12/2025 was normal. LP on 01/17/2025 was unremarkable including Lyme, HSV and culture. Brain MRI on 01/15/2025: 1. Increased FLAIR signal with
associated focal mass effect and mild restricted diffusion in the right anterior medial temporal lobe with patchy areas of enhancement. The differential diagnosis includes cerebritis secondary to infectious or inflammatory process as well as
neoplastic process. 2. Chronic area of consolidation in the left anterior inferior lateral frontal lobe. 3. Predominantly peripheral enhancement throughout pituitary gland. The etiology is uncertain. Could be related to inflammation or ischemia. 4.
Nonspecific white matter changes, likely mild chronic microvascular white matter ischemic disease. He was eventually discharged on 01/19/2025 on Keppra 1000 mg twice daily. He presented back to [facility] on 02/14/2025 with left-sided
numbness. He reportedly woke up around 4:00 a.m. with numbness and tingling on the left side of his body from his head to his toe. He felt foggy and was slow to respond. Symptoms resolved spontaneously around 6:00 a.m. on arrival to the ER. Head CT
negative for acute intracranial abnormality, stable left frontal area of encephalomalacia. Head/neck CTA shows an abnormal area of enhancement and hypoattenuation in the right basal ganglia measuring 15 mm, possible acute CVA new since prior exam.
EEG was abnormal due to continuous delta activity over the right frontotemporal region. There were no epileptiform discharges seen. MRI could not be performed due to technical reasons related to his pacemaker. He was discharged home on 02/17/2025.
He saw his PCP on 03/16/2025 who sent him to the ED at [facility] for progressive generalized weakness and gait dysfunction with more pronounced left facial droop. Head CT showed a new brain mass and he was transferred to the Neurosurgery
Service at the [facility]. MRI brain on 03/16/2025 revealed a large expansive infiltrative mass involving the right temporal and inferior frontal lobes, right insula and julius insular region with extensive cortical infiltration and
expansion, extending to the right mesial temporal lobe and right basal ganglia capsular region, consistent with a high-grade infiltrative glioblastoma. He underwent a right frontal craniotomy on 03/21/2025. Pathology was consistent with
glioblastoma. He was discharged to rehab on 03/28/2025. He was admitted to [facility] on 04/01/2025 with acute pulmonary edema and aspiration pneumonia. He was transferred to the neuro ICU at [facility]. He required PEG tube placement for
dysphagia. He was eventually discharged home on 04/11/2025. Interim hx: He reports no further seizures. He is currently on Keppra 1500 mg twice daily. He is getting all feeding and medications via his PEG. He has home care, including nursing, PT and
speech therapy. He feels deconditioned. He ambulates with a wheeled walker. He is following with oncology, radiation oncology and neurosurgery.'
Objective Data
Vital Signs
Pulse Resp BP Pulse Ox
85 11 111/68 100
05/15/25 09:00 05/15/25 09:00 05/15/25 09:00 05/15/25 09:00
Lab Results
05/15/25 05:56
05/15/25 05:56
Sodium 137 mmol/L (135-145) 05/15/25 05:56
Potassium 3.6 mmol/L (3.5-5.1) 05/15/25 05:56
BUN 45 mg/dl (9-20) H 05/15/25 05:56
Glucose 127 mg/dl (70-99) H 05/15/25 05:56
Calcium 9.2 mg/dl (8.4-10.2) 05/15/25 05:56
Patient Allergies
cat dander Allergy (Verified 03/15/25 15:23)
Unknown
Physical Exam
-
General: Comfortable
HEENT: Normocephalic, Atraumatic and Anicteric
Neck: Full Range of Motion
Respiratory: No Dyspnea
Psych: Unremarkable
Extended Neurological Exam
Mood & Affect: Mood Unremarkable
Attention Span & Concentration: Awake, Alert, Interactive, No Difficulty with 2 Step Request and Other (masked facies )
Memory: Reduced
Speech: Hoarse
Cranial Nerve II: Left Eye: Visual Sierra Intact
Cranial Nerve II: Right Eye: Visual Sierra Intact
Cranial Nerves III, IV, : Extraocular Movement: Extraocular Movement Full in all Directions
Cranial Nerve VII: Facial Symmetry: Normal Facial Symmetry
Cranial Nerve VIII: Hearing: Unremarkable Hearing to Normal Conversational Volume
Muscle Strength, Overall: Other (+4 DF bilaterally)
Pronator Drift: Drift in Left Upper Extremity and Drift in Left Lower Extremity
Deep Tendon Reflexes: Absent Throughout
Touch Sensation: Unremarkable and Double Simultaneous Stimulation Unremarkable
Data Reviewed
-
Medical Test Reports: Report Reviewed
Labs: Report Reviewed
Reviewed with: Physician, Patient and Family
Old Records: Summarized
Medications
-
Home Medications
�Medication �Instructions �Recorded
Amyloidosis Clinical Trial 1 dose SC [id number] TRIAL 10/06/22
atorvastatin 40 mg tablet 40 mg PO HS High cholesterol 10/06/22
tafamidis 61 mg capsule (Vyndamax) 61 mg PO DAILY Amyloid 10/06/22
cardiomyopathy
apixaban 5 mg tablet (Eliquis) 5 mg PO BID #60 tabs 10/15/22
polyethylene glycol 3350 17 gram 17 g PO DAILY PRN constipation #30 10/15/22
oral powder packet ea
sennosides 8.6 mg-docusate sodium 1 tab PO BID #30 tabs 10/15/22
50 mg tablet (Senna Plus)
amiodarone 200 mg tablet (Pacerone) 200 mg PO BID 30 days #60 tabs 10/29/22
midodrine 10 mg tablet 10 mg PO TID 30 days #90 tabs 10/29/22
torsemide 20 mg tablet 40 mg (2 x 20 mg) PO DAILYPRN PRN 10/29/22
wt gain #0 tabs
multivitamin 1 tab PO DAILY 12/17/22
potassium chloride 20 mEq 20 meq PO QPM 12/17/22
tablet,extended
release(part/cryst) (Klor-Con M)
Past History
Past History
ED Past Medical History: Arrthythmia (Atrial fibrillation), CHF, HTN and Other (Amyloidosis cardiomyopathy)
ED Past Surgical History: Cardiac
Family/Social History
Tobacco: Non-smoker
Alcohol: None
[2025-05-15] MEDS: FARXIGA 10 MG TUBE (13:10)
[2025-05-15] MEDS: SINEMET 25-100 1 TABLET TUBE ×2 (13:10→20:04)
[2025-05-15] MEDS: SYNTHROID 25 MCG TUBE (13:12)
--- NOTE | 2025-05-15 14:41 | EEG.RPT ---
Electroencephalogram Report
Recording
Date of EE05/15/25
Type of EEG: Routine
Length of EEG recordin minutes
Done with Video Recording: Yes
Patient Status: Inpatient
Recording Conditions: Awake and Drowsy
Hyperventilation Performed: No
Photic Stimulation Performed: Yes
Report
LESS THAN 1 HOUR EEG REPORT
LESS THAN 1 HOUR EEG INTERPRETATION:
Moderately abnormal EEG for age with evidence of a breach artifact in the right temporal region and diffuse slowing
CLINICAL CORRELATION:
The presence of a breach artifact was suggestive of a prior right-sided craniotomy.
Presence of diffuse slowing was indicative of a generalized cortical dysfunction. If clinical suspicion for seizure persists, a prolonged recording may be warranted.
Clinical correlation is advised.
METHODS:
A 21 channel digitized electroencephalogram (EEG) was performed using the 10/20 international system of electrode placement and one-lead of ECG recorded. [employer] quantitative EEG analysis was utilized.
ELECTROENCEPHALOGRAPHER IMPRESSION(S):
Quality of study
Good
Background
There was a poor anterior-posterior voltage gradient of theta maximal frequency noted in the left hemisphere. Maximal frequency on the right was delta frequency.
With eye opening the background activity changed to a low voltage mixture of frequencies.
There was near continuous, variable amplitude theta�maximal frequency, right temporal (T4 maximal) electrical focal slowing.
Sleep
Drowsiness present
Photic Stimulation
No driving
ECG
Normal sinus rhythm
[2025-05-15] MEDS: ELIQUIS 5 MG TUBE ×2 (14:54→19:45)
--- NOTE | 2025-05-15 15:25 | PTOTSP ---
Speech Language Pathology
Pt seen for clinical bedside swallow evaluation. Pt followed by home health ELECTRICAL TECH/PROJECT MANAGER through [facility] per report. Spoke with primary ELECTRICAL TECH/PROJECT MANAGER and received VSE report from James (completed 04/09/25). VSE showed mod-severe oropharyngeal dysphagia with silent
aspiration of thin liquids, with deep penetration and eventual aspiration of mildly thick liquids, and severe residue of puree consistencies. At home, pt has been consuming unlimited ice chips throughout day in addition to sparing sips of thin
water and puree with chemo meds. CXR showed clear lungs, and WBC WNL. Plan per primary ELECTRICAL TECH/PROJECT MANAGER to repeat VSE once chemo/radiation completed.
P.O. trials of ice chips and single sips of thin liquids via straw provided. Adequate oral phase noted with limited consistencies trialed. Throat clear with 1/2 trials of ice chips and 1/3 trials of thin liquids via straw. This is typical per
pt/.
Recommend:
(1) Unlimited ice chips post oral care given supervision per Aspiration Risk Hydration Protocol (ARHP)
(2) All nutrition/hydration via PEG
(3) Oral care 4x/day with suctioning as needed
(4) Meds via PEG
(5) ELECTRICAL TECH/PROJECT MANAGER to follow. Will hold on repeat VSE during hospitalization per discussion with primary therapist
[2025-05-15] MEDS: SINEMET 25-100 TUBE (19:01)
[2025-05-15] MEDS: KEPPRA 1500 MG TUBE (19:45)
[2025-05-15] MEDS: DECADRON 4 MG TUBE (19:46)
[2025-05-15] MEDS: LIPITOR 40 MG TUBE (20:04)
[2025-05-15] MEDS: PEPCID neonatal/peds 20 MG TUBE (22:08)
[2025-05-16 03:53] VITALS: BP 103/60
[2025-05-16] MEDS: SYNTHROID 50 MCG TUBE (05:51)
[2025-05-16 07:00] VITALS: BP 111/69
[2025-05-16 07:21] LABS: ALT (SGPT) 17 U/L (0-50); AST (SGOT) 64 U/L (17-59); Albumin 4.2 g/dl (3.5-5.0); Alkaline Phosphatase 30 U/L (38-126); Blood Urea Nitrogen 37 mg/dl (9-20); Calcium 9.3 mg/dl (8.4-10.2); Carbon Dioxide 27 mmol/L (22-30); Chloride 101 mmol/L (98-107); Glucose 106 mg/dl (70-99); Potassium 4.6 mmol/L (3.5-5.1); Sodium 136 mmol/L (135-145); Total Protein 6.6 g/dl (6.3-8.2); eGFR > 60.00
[2025-05-16 07:24] LABS: Hematocrit 37.2 % (39.0-52.0); Hemoglobin 12.6 g/dL (13.0-18.0); Mean Corp Hgb Conc. 33.9 g/dL (33.0-37.0); Mean Corpuscular Volume 93.9 fL (80.0-94.0); Platelet Count 122 10^3/uL (130-400); Red Cell Dist. Width 15.2 % (11.5-14.5)
--- NOTE | 2025-05-16 08:10 | VNURNOTE ---
Chart reviewed. Patient is current with [facility]. Will continue to follow hospital course and DC plans.
[2025-05-16] MEDS: DECADRON 4 MG TUBE (09:40)
[2025-05-16] MEDS: PEPCID neonatal/peds 20 MG TUBE (09:40)
[2025-05-16] MEDS: KEPPRA 1500 MG TUBE (09:40)
[2025-05-16] MEDS: VIMPAT 200 MG IV (09:41)
[2025-05-16] MEDS: ELIQUIS 5 MG TUBE (09:41)
[2025-05-16] MEDS: FARXIGA 10 MG TUBE (09:41)
[2025-05-16] MEDS: SINEMET 25-100 1 TABLET TUBE ×3 (09:45→15:08)
--- NOTE | 2025-05-16 10:22 | W.DCSUMMARY ---
Discharge Summary
Discharge Data
Date of Admission: 05/15/25
Date of Discharge: 05/16/25
Total time spent discharging patient (in min): 54
-
Pending Results: No
Hospital Course
Mr. De La Cruz is a 74-year-old male with a medical history of glioblastoma multiforme, malignancy related seizures (on Keppra), Parkinson's disease, HFrEF (LVEF 25%, ICD in place), CKD stage IV, and amyloid cardiomyopathy who presented after having 3
seizures witnessed by his . The first 2 seizures ceased spontaneously, and the third aborted after EMS arrived and administered Versed. Patient did not recover between his seizures. He is status post resection of his brain tumor in March 2025
and is currently undergoing radiation treatment. His last dose of radiation was 1 day prior to symptom onset. He has had malignancy related seizures in the past starting in January 2025. He was admitted for further evaluation and management.
He was evaluated by neurology who recommended adding lacosamide 200 mg twice daily to his home Keppra regimen of 1500 mg twice daily. His radiation oncologist was notified and recommended increasing his dexamethasone dose from 4 mg once daily to 4
mg twice daily. He remained clinically stable after admission and had no further seizures. He will be discharged home with the above-mentioned changes to his medication regimen. He will need to follow-up closely with his radiation oncologist for
ongoing treatment and with his primary neurologist, Dr. Vincent at [facility]. Additionally, he will be given a prescription for midazolam nasal spray to use at home as abortive treatment for breakthrough seizures. At the time of hospital discharge
he was medically stable.
General: Awake and alert, comfortable
HEENT: NormoCephalic, Moist mucous membranes, Atraumatic
Respiratory: Clear and Non Labored Respirations
Cardiac: S1/S2 and Regular Rhythm; No Rub or Gallop
GI: Soft, Non Tender, PEG tube in place
Musculoskeletal: No Edema, no deformity
Skin: Warm and dry
: NO Christianson
Neuro: Awake and alert, no tremor
Psych: Calm and cooperative
Discharge Plan
-
Patient Disposition: Home (Routine Discharge)
Discharge Diagnosis/Procedures: Breakthrough seizures
Activity Restrictions/Additional Instructions:
Mr. De La Cruz is a 74-year-old male with a medical history of glioblastoma multiforme, malignancy related seizures (on Keppra), Parkinson's disease, HFrEF (LVEF 25%, ICD in place), CKD stage IV, and amyloid cardiomyopathy who presented after having 3
seizures witnessed by his . The first 2 seizures ceased spontaneously, and the third aborted after EMS arrived and administered Versed. Patient did not recover between his seizures. He is status post resection of his brain tumor in March 2025
and is currently undergoing radiation treatment. His last dose of radiation was 1 day prior to symptom onset. He has had malignancy related seizures in the past starting in January 2025. He was admitted for further evaluation and management.
He was evaluated by neurology who recommended adding lacosamide 200 mg twice daily to his home Keppra regimen of 1500 mg twice daily. His radiation oncologist was notified and recommended increasing his dexamethasone dose from 4 mg once daily to 4
mg twice daily. He remained clinically stable after admission and had no further seizures. He will be discharged home with the above-mentioned changes to his medication regimen. He will need to follow-up closely with his radiation oncologist for
ongoing treatment and with his primary neurologist, Dr. Vincent at [facility]. Additionally, he will be given a prescription for midazolam nasal spray to use at home as abortive treatment for breakthrough seizures. At the time of hospital discharge
he was medically stable.
Referrals:
Sophie Lynn PA [Family Provider, Family Practice]
Prescriptions:
New
midazolam 5 mg/spray (0.1 mL) spray,non-aerosol
1 spray intranasal ONCE Qty: 2 0RF
Rx Instructions:
use as needed as abortive treatment for breakthrough seizures
lacosamide [Vimpat] 10 mg/mL solution
200 mg feeding tube BID Qty: 465 0RF
Continued
Amyloidosis Clinical Trial
1 dose SC [id number]
Rx Instructions:
vutrisiran
atorvastatin 40 mg tablet
40 mg feeding tube HS
levothyroxine 25 mcg tablet
25 mcg feeding tube Q48H
levothyroxine 25 mcg tablet
50 mcg feeding tube Q48H
famotidine 40 mg/5 mL (8 mg/mL) suspension for reconstitution
20 mg feeding tube BID
carbidopa-levodopa 25-100 mg tablet
1 tab feeding tube 0800,1200,1600,2000
levetiracetam 100 mg/mL solution
1,500 mg feeding tube BID
acetaminophen 650 mg/20.3 mL Solution
650 mg feeding tube QIDPRN PRN (Reason: mild pain/fever)
dapagliflozin propanediol [Farxiga] 10 mg tablet
10 mg PO DAILY
torsemide 20 mg tablet
10 mg feeding tube DAILYPRN PRN (Reason: wt gain)
polyethylene glycol 3350 17 gram powder in packet
17 g feeding tube DAILYPRN PRN (Reason: constipation)
Eliquis 5 mg tablet
5 mg feeding tube BID
Changed
dexamethasone 0.5 mg/5 mL elixir
4 mg feeding tube BID Qty: 237 0RF
Held
Vyndamax 61 mg capsule
61 mg PO .ON HOLD
Hold Instructions: Continue as instructed by the prescribing physician
Rx Instructions:
daily but has been on hold since january 2025
Discharge Orders:
Discharge Patient (As Directed); Ordered 05/16/25
Ordered By: Frank Portillo
Discharge Date and Time
Print Language: VENEZUELAN
[2025-05-16 11:00] VITALS: BP 106/61
--- NOTE | 2025-05-16 12:23 | CM ---
Alert awake patient who lives with Linnette in a 2 story home with ramp. He is assisted in all ADLs by his and dgts.Pt has hopsital bed wc rolling walker Shower chair, wc , Peg tube plus feedings. Pt requested resumption of [facility] . Katrin
Liaison aware.IMM reviewed with she agrees with DC and IMM . IMM signed on chart. requested ambulance. Medical nec form completed.
Alegre hx and current [facility] .
Pharmacy [facility]
PCP Blank Conrad
PLAN Home via ambulance with [facility]
[2025-05-16 15:00] VITALS: BP 109/64
== END 2025-05-16 16:20 | disposition home health service (06) ==
LOC: 4 EAST ACU 12:32
PROVIDERS: Emergency Medicine; Student in an Organized Health Care Education/Training Program; ADMITTING PHYSICIAN Internal Medicine; CONSULT PHYSICIAN Psychiatry & Neurology Neurology; EMERGENCY PHYSICIAN Emergency Medicine; FAMILY PHYSICIAN Physician Assistant
DX: G40.89 Other seizures (principal); C71.9 Malignant neoplasm of brain, unspecified; G20.A1 Parkinson's disease without dyskinesia, without mention of fluctuations; E03.9 Hypothyroidism, unspecified; E83.110 Hereditary hemochromatosis; I48.19 Other persistent atrial fibrillation; N18.4 Chronic kidney disease, stage 4 (severe); I50.22 Chronic systolic (congestive) heart failure; I13.0 Hypertensive heart and chronic kidney disease with heart failure and stage 1 through stage 4 chronic kidney disease, or unspecified chronic kidney disease; I43 Cardiomyopathy in diseases classified elsewhere; E85.4 Organ-limited amyloidosis; R13.10 Dysphagia, unspecified; R29.810 Facial weakness; Z66 Do not resuscitate; Z79.01 Long term (current) use of anticoagulants; Z87.891 Personal history of nicotine dependence; Z79.899 Other long term (current) drug therapy; Z95.810 Presence of automatic (implantable) cardiac defibrillator; Z92.3 Personal history of irradiation; Z87.01 Personal history of pneumonia (recurrent); Z92.21 Personal history of antineoplastic chemotherapy
CPT/HCPCS: 70450; 71045; 80053; 80177; 82550; 85025; 85027; 92610; 93005; 95816; 96374; 96375; 99291; C9254; G0378